=== PATIENT | female | born 1985 | race Caucasian/White ===

== ENCOUNTER 2020-02-18 18:22 | Emergency (ER) | payer SELFPAY ==
[~2020-02-18] VITALS: Ht 165.1 cm; Wt 63.5 kg
[2020-02-18 19:09] LABS: URINE BILIRUBIN - DIPSTICK NEGATIVE (NEGATIVE); URINE BLOOD DIPSTICK SMALL (NEGATIVE); URINE COLOR YELLOW; URINE GLUCOSE - DIPSTICK NEGATIVE (NEGATIVE); URINE KETONE NEGATIVE (NEGATIVE); URINE NITRITE - DIPSTICK NEGATIVE (Negative); URINE PROTEIN - DIPSTICK NEGATIVE (NEG-TRACE); URINE UROBILINOGEN - DIPSTICK 0.2 E.U./dL (0.2)
[2020-02-18 19:10] LABS: URINE BACTERIA FEW hpf; URINE EPITHELIAL CELLS MANY EPI/hpf (0-FEW); URINE LEUK ESTERASE LARGE (NEGATIVE)
[2020-02-18] MEDS ORDERED: BACTRIM DS1 TAB PO (19:24)
[2020-02-18 19:54] VITALS: BP 112/64
== END 2020-02-18 19:54 | disposition home or self-care (01) | DRG 690 ==
LOC: ED 18:22
PROVIDERS: Family Medicine
DX: N39.0 Urinary tract infection, site not specified (principal); B96.20 Unspecified Escherichia coli [E. coli] as the cause of diseases classified elsewhere